=== PATIENT | female | born 2000 | race Caucasian/White ===

== ENCOUNTER 2024-08-09 12:34 | Emergency (ER) | payer OTHER, SELFPAY ==
[2024-08-09 12:57] VITALS: BP 123/86
[2024-08-09 13:42] LABS: % Basophils 0.4 % (0-2); % Eosinophils 0.5 % (0-6); % Immature Granulocytes 0.3 % (0-0.5); % Lymphocytes 21.7 % (20.5-51.1); % Monocytes 8.2 % (1.7-9.3); % Neutrophils 68.9 % (42.2-75.2); Absolute Lymphocytes 1.6 10^3/uL (1.2-3.4); Absolute Monocytes 0.6 10^3/uL (0.1-0.6); Absolute Neutrophils 5.1 10^3/uL (1.4-6.5); Hematocrit 42.9 % (37.0-47.0); Hemoglobin 15.1 g/dL (12.0-16.0); Mean Corp Hgb Conc. 35.2 g/dL (33.0-37.0); Mean Corpuscular Hgb 31.7 pg (27.0-31.0); Mean Corpuscular Volume 89.9 fL (81.0-99.0); Mean Platelet Volume 8.6 fL (7.4-10.4); Nucleated Red Blood Cells % 0 %; Platelet Count 326 10^3/uL (130-400); Red Blood Cell Count 4.77 10^6/uL (4.20-5.40); Red Cell Dist. Width 11.9 % (11.5-14.5); White Blood Cell Count 7.5 10^3/uL (4.8-10.8)
[2024-08-09 14:00] LABS: Urine Albumin Negative (Neg - Trace); Urine Bilirubin Negative (Negative); Urine Character Clear (Clear); Urine Color Yellow; Urine Glucose Negative (Negative); Urine Ketone Negative (Negative); Urine Leukocyte Negative (Negative); Urine Nitrite Positive (Negative); Urine Occult Blood Negative (Negative); Urine Specific Gravity 1.005 (<1.030); Urine Urobilinogen Negative (Neg - 1+)
[2024-08-09 14:03] LABS: ALT (SGPT) 18 U/L (0-35); AST (SGOT) 22 U/L (14-36); Albumin 5.1 g/dl (3.5-5.0); Alkaline Phosphatase 45 U/L (38-126); Blood Urea Nitrogen 10 mg/dl (7-17); Calcium 9.9 mg/dl (8.4-10.2); Carbon Dioxide 27 mmol/L (22-30); Chloride 101 mmol/L (98-107); Glucose 83 mg/dl (70-99); Potassium 4.2 mmol/L (3.5-5.1); Sodium 137 mmol/L (135-145); Total Bilirubin 1.1 mg/dl (0.2-1.3); Total Protein 7.4 g/dl (6.3-8.2); eGFR > 60.00
[2024-08-09 14:11] LABS: Urine Squamous Cell >30 /LPF (Few)
[2024-08-09 14:12] LABS: Urine Bacteria Few (Negative); Urine Red Blood Cell 0-2 /HPF (0-2); Urine White Cell 0-2 /HPF (0-5)
[2024-08-09 14:26] LABS: HCG, Serum Qualitative Screen Negative
[2024-08-09 15:46] VITALS: BP 109/83; BMI 19.0
--- NOTE | 2024-08-09 15:47 | ED.GENMED ---
History of Present Illness
General
Chief Complaint: Flank Pain
Time Seen by Provider: 08/09/24 15:23
History of Present Illness
History of Present Illness:
24-year-old female with history of celiac disease presents the emergency department due to recurrent UTI symptoms for the past 6 months with new onset bilateral (right greater than left) flank pain over the past 24 hours. She has never had this
pain in the past. She reports having monthly dysuria and urinary urgency that tends to correlate with her menstrual cycle, has had numerous negative urinalyses and urine cultures during this time. She denies any fevers or chills. No nausea
vomiting or diarrhea. No history of intra-abdominal surgeries
Review of Systems
Review of Systems
Allergies reviewed?: Yes
All Other Systems: ROS reviewed and negative except as documented in HPI and ROS
Phy Exam
Physical Exam
Physical Exam:
GEN: Well appearing, NAD, WDWN
HEENT: Oral mucosa moist, no scleral icterus
Cardiac: Regular rate
Lung: No respiratory distress, no tachypnea
Abdomen: Soft, no rigidity, focal tenderness to the suprapubic and right lower quadrant
MSK: No gross deformity or injuries
Skin: Good color, no pallor or jaundice, no rashes
Neuro: AO x3, moves all extremities freely
Psych: Calm, cooperative
Course
Orders/Labs/Results
Orders:
Orders
08/09/24 13:06
Test Result ONCE
08/09/24 13:13
CBC/With Diff [Complete Blood Count/With Diff] Urgent
Comprehensive Metabolic Panel Urgent
HCG, Serum Qualitative Screen Urgent
Urinalysis Reflex To Culture Urgent
Date Specimen was Collected: 08/09/24
Time Specimen was Collected: 13:07
Urine Microscopic Reflex Cult Urgent
Urine Culture Urgent
ELDA Source: U
Specimen Description:
Date Specimen was Collected: 08/09/24
Time Specimen was Collected: 13:07
08/09/24 15:39
US Kidneys and US Bladder [US Renal With Bladder] Urgent
Comment:
Reason For Exam: b/l flank pain, dysuria
08/09/24 15:51
Ibuprofen [Motrin] 400 mg PO NOW STA
Abnormal Lab Results
08/09/24
13:13
MCH 31.7 H pg
(27.0-31.0)
Albumin 5.1 H g/dl
(3.5-5.0)
Urine Nitrite (Reflex) Positive A
(Negative)
Urine Bacteria (Reflex) Few A
(Negative)
08/09/24 13:13
08/09/24 13:13
Vital Signs
Initial and Last Documented VS:
Initial Vital Signs
Temp Pulse Resp BP Pulse Ox
98.6 F 76 16 123/86 98
08/09/24 12:57 08/09/24 12:57 08/09/24 12:57 08/09/24 12:57 08/09/24 12:57
Last Documented Vital Signs
Temp Pulse Resp BP Pulse Ox
98.8 F 86 20 109/83 99
08/09/24 15:46 08/09/24 15:46 08/09/24 15:46 08/09/24 15:46 08/09/24 15:46
MDM/Problems Addressed
MDM/Problems Addressed:
Incidentally patient is noted to have a likely hemorrhagic ovarian cyst, no abnormalities to suggest alternative source of her pain. Do not see any indication for dedicated pelvic ultrasound at this time. Recommend she follow-up for repeat
pelvic imaging in 4 to 6 weeks. Educated her about typical supportive care progression of symptoms in regards to hemorrhagic ovarian cyst.
*Critical Care Note
Total Time (30-74mins, 75-104mins- exclusive of procedures): Not Applicable
ED Attending Note
-
Portions of this chart may have been created with voice recognition software.� Occasional wrong word or��sound alike� substitutions may have occurred due to the inherent limitations of voice recognition software.
Discharge Plan
Departure
Patient Disposition: Home (Routine Discharge)
Date of Disposition: 08/09/24
Time of Disposition: 17:11
Patient with high blood pressure during this ER visit?: No
Discharge Problem:
Hemorrhagic cyst of right ovary
Instructions: Ovarian cyst - ED discharge instructions
Prescriptions:
No Action
lisdexamfetamine [Vyvanse] 20 mg Capsule
20 mg PO DAILY
Referrals:
Gary Egan DO [Family Provider] -
Activity Restrictions/Additional Instructions:
See your [employer] for follow up ultrasound in 4-6 weeks
Interventions
Interventions:
*Risk Screen - Suicide Last Done: 08/09/24 12:57
*General Assessment Last Done: 08/09/24 15:46
*Neglect/Abuse Screening Last Done: 08/09/24 12:57
ED- Fall Risk Assessment Last Done: 08/09/24 15:46
*ED COVID-19 Vaccine History Last Done: 08/09/24 15:46
*Nursing Disposition Last Done: 08/09/24 17:35
HQ-Ngewes-Lpjnrfobjo Assessment Last Done: 08/09/24 15:46
ED-Female Genitourinary Assessment Last Done: 08/09/24 15:46
Discharge Date and Time
Discharge Date/Time: 08/09/24 17:35
Print Language: KHMER
[2024-08-09] MEDS: MOTRIN 400 MG PO (16:00)
--- NOTE | 2024-08-09 16:58 | EDRN ---
Tommy OLSEN is currently at the pts bedside
== END 2024-08-09 17:35 | disposition home or self-care (01) ==
LOC: EMR 12:34
PROVIDERS: Emergency Medicine; EMERGENCY PHYSICIAN Emergency Medicine; FAMILY PHYSICIAN Family Medicine
DX: N83.201 Unspecified ovarian cyst, right side (principal); Z87.440 Personal history of urinary (tract) infections
CPT/HCPCS: 99284; 76770; 80053; 81003; 81015; 84703; 85025; 87086